=== PATIENT | female | born 1965 | race Caucasian/White ===

== ENCOUNTER 2017-07-21 23:46 | Emergency (ER) | payer OTHER ==
[~2017-07-21] VITALS: Ht 162.6 cm; Wt 113.4 kg
[2017-07-22] MEDS ORDERED: LYRICA 50 MG50 MG
[2017-07-22] MEDS ORDERED: METHADONE HCL 110 M1 (00:01)
[2017-07-22] MEDS ORDERED: HYDROXYZINE HCL25 M1 (00:01)
[2017-07-22] MEDS ORDERED: SYNTHROID25 MCG (00:02)
[2017-07-22] MEDS ORDERED: PROZAC20 MG (00:03)
[2017-07-22] MEDS ORDERED: FOLIC ACID1 MG (00:03)
[2017-07-22] MEDS ORDERED: NAPROSYN500 MG (00:04)
[2017-07-22] MEDS ORDERED: ADDERALL 15 MG15 MG (00:04)
[2017-07-22] MEDS ORDERED: ZALEPLON 10 MG10 M1 (00:06)
[2017-07-22] MEDS ORDERED: AMBIEN 5 MG TABL5 M1 (00:06)
[2017-07-22] MEDS ORDERED: LEVAQUIN 500 M500 M2 (00:07)
[2017-07-22] MEDS ORDERED: PREDNISONE 10 M10 MG (00:08)
[2017-07-22 00:11] LABS: BE -1.1 mmol/L (-2 to +3)
[2017-07-22 00:50] LABS: HEMATOCRIT 45.5 % (37.0-47.0); HEMOGLOBIN 15.2 gm/dL (12.0-15.0); MCH 30.5 pg (26.0-34.0); MCHC 33.4 g/dL (28.0-37.0); MCV 91.5 fL (80.0-100.0); MPV 8.4 fl. (7.2-11.1); NUCLEATED RBCS 0 /100WBC; PLATELET COUNT* 138 thou/uL (150-400); RBC 4.97 mil/uL (4.20-5.00); RDW-CV 14.2 % (10.5-14.5); WBC 3.8 thou/uL (4.0-11.0)
[2017-07-22 00:58] LABS: ANION GAP 11 mmol/L (7-16); BUN 10 mg/dL (7-18); CALCIUM 8.2 mg/dL (8.5-10.1); CHLORIDE 101 mmol/L (98-107); CO2 23 mmol/L (21-32); CREATININE 0.8 mg/dL (0.6-1.3); GLUCOSE 184 mg/dL (70-99); POTASSIUM 3.7 mmol/L (3.5-5.1); SODIUM 135 mmol/L (136-145)
[2017-07-22 01:09] LABS: ALBUMIN 2.5 g/dL (3.4-5.0); ALKALINE PHOSPHATASE 153 U/L (46-116); NT-PRO BRAIN NAT PEPTIDE 151 pg/mL (<300); SGOT 82 U/L (15-37); SGPT 31 U/L (30-65); TOTAL BILIRUBIN 0.5 mg/dL (<0.1-1.0); TOTAL PROTEIN 7.1 g/dL (6.4-8.2); TROPONIN-I LEVEL <0.06 ng/mL (<0.06)
[2017-07-22 01:10] LABS: INR 1.1; PROTIME 10.3 Seconds (9.20-11.50)
[2017-07-22 01:47] LABS: ABSOLUTE LYMPHOCYTES 0.4 thou/uL (0.8-5.3); ABSOLUTE MONOCYTES 0.1 thou/uL (0.0-1.2); ABSOLUTE NEUTROPHILS 3.3 thou/uL (1.6-8.1); ANISOCYTOSIS Occasional; PLATELET ESTIMATE DECREASED
[2017-07-22 02:05] LABS: INFLUENZA A ANTIGEN None Detected (None Detect); INFLUENZA B ANTIGEN None Detected (None Detect)
[2017-07-22 03:16] LABS: URINE BLOOD TRACE (Negative); URINE CLARITY CLEAR; URINE COLOR YELLOW; URINE GLUCOSE-RANDOM TRACE (Negative); URINE KETONES 2+ (Negative); URINE LEUKOCYTES-REFLEX NEGATIVE (Negative); URINE NITRITE-REFLEX NEGATIVE (Negative); URINE PROTEIN 2+ (Negative); URINE SPECIFIC GRAVITY >= 1.030 (1.005-1.030)
[2017-07-22 03:58] VITALS: BP 116/77
[2017-07-22 03:59] LABS: URINE BILIRUBIN 1+ (Negative)
[2017-07-22 04:01] LABS: ICTOTEST (BILI CONFIRMATORY) Positive (Negative)
[2017-07-22 04:03] LABS: RENAL EPITHELIAL CELLS 0-3 Few /LPF (None Seen); SQUAMOUS 0-3 Few /LPF (0-3); TRANSITIONAL EPITHEL CELL 0-3 Few /LPF (None Seen)
[2017-07-22 04:04] LABS: BACTERIA-REFLEX >30 Many /HPF (None Seen); CELLULAR CASTS 0-3 Few /LPF (None Seen); COARSE GRANULAR CASTS 0-3 Few /LPF (None Seen); CRYSTALS None Seen /LPF (None Seen); FINE GRANULAR CASTS 0-3 Few /LPF (None Seen); MUCUS 4-6 Moderate strn/LPF (None Seen); URINE RBC 3-10 Few /HPF (0-2); URINE WBC-REFLEX 6-15 Few /HPF (0-5)
--- NOTE | 2017-07-22 12:08 | EKG ---
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 : 1965 Requested By: Kenya Gomez Order Number: [id number] MD: Channing Karimi Measurements Intervals [place] Rate: 103 P: 16 AL: 131 QRS: -27 QRSD: 81 T: -22 QT: 331 QTc: 434 Interpretive Statements Sinus tachycardia Probable anterior infarct, age indeterminate No previous ECG available for comparison Electronically Signed On 07-22-2017 12:08:24 [employer] 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
== END 2017-07-22 04:01 | disposition short-term general hospital (02) ==
LOC: M.ERS 23:46
PROVIDERS: Emergency Medicine
DX: J96.90 Respiratory failure, unspecified, unspecified whether with hypoxia or hypercapnia (principal); G62.9 Polyneuropathy, unspecified; Z90.49 Acquired absence of other specified parts of digestive tract; Z88.5 Allergy status to narcotic agent; Z88.0 Allergy status to penicillin